=== PATIENT | female | born 1950 | race Caucasian/White ===

== ENCOUNTER → 2017-11-15 | Outpatient (CLI) | payer MEDICARE, BC ==
[~2017-11-15] MED LIST: ALEVE 220MG220 MG PO; ASPIRIN 81M81 MG/TA2 PO; BACTRIM DS 8001 TAB PO; FERROUS SU325 MG/TAB PO; HUMALOG PEN100 U/ML SQ; LANTUS SOLOS100 U/ML SQ; MAG-OX 400400 MG/TAB PO; NEURONTIN300 MG/CAP PO; NEURONTIN600 MG/TAB PO; NORCO 325 MG-7.1 TAB PO; NOVLOG SQ; PLAVIX 75MG TAB75 MG PO; PROTONIX 40MG T40 MG PO; TOPROL XL 25MG25 MG PO; TYLENOL 325MG325 MG PO; ULTRAM 50MG TAB50 MG PO; ZESTRIL 10MG10 MG PO; ZOCOR 20MG20 MG PO; ZOLOFT 100MG100 MG PO
== END ==
LOC: COL.RAD 08:00
DX: N30.20 Other chronic cystitis without hematuria (principal); Z96.0 Presence of urogenital implants; Z90.710 Acquired absence of both cervix and uterus; Z98.890 Other specified postprocedural states

== ENCOUNTER → 2018-04-16 | Outpatient (CLI) | payer MEDICARE, BC | LOC: COL.RAD 10:00 | DX: N30.20 Other chronic cystitis without hematuria (principal); N32.89 Other specified disorders of bladder; K57.30 Diverticulosis of large intestine without perforation or abscess without bleeding; Z90.710 Acquired absence of both cervix and uterus; Z96.0 Presence of urogenital implants ==

== ENCOUNTER → 2020-01-20 | Outpatient (CLI) | payer MEDICARE, BC, MEDICAID | LOC: COL.RAD 09:13 | DX: N32.89 Other specified disorders of bladder (principal); I71.4 Abdominal aortic aneurysm, without rupture; K57.30 Diverticulosis of large intestine without perforation or abscess without bleeding; Z90.710 Acquired absence of both cervix and uterus | CPT/HCPCS: 31860; A4314 ==